=== PATIENT | male | born 1960 | race Caucasian/White ===

== ENCOUNTER 2017-10-16 17:54 | Outpatient (CLI) | END 2017-10-16 17:55 | disposition home or self-care (01) | LOC: NONPT 17:54 | DX: M86.9 Osteomyelitis, unspecified (principal) | CPT/HCPCS: 80202 ==

== ENCOUNTER 2017-11-01 13:58 | Outpatient (CLI) | END 2017-11-01 13:59 | disposition home or self-care (01) | LOC: NONPT 13:58 | PROVIDERS: ATTEND Internal Medicine Infectious Disease | DX: E11.9 Type 2 diabetes mellitus without complications (principal); M86.9 Osteomyelitis, unspecified | CPT/HCPCS: 80053; 83036; 85025; 85651 ==

== ENCOUNTER 2018-01-03 15:16 | Outpatient (CLI) | END 2018-01-03 15:17 | disposition home or self-care (01) | LOC: NONPT 15:16 | PROVIDERS: ATTEND Internal Medicine Gastroenterology | DX: M86.9 Osteomyelitis, unspecified (principal); E11.9 Type 2 diabetes mellitus without complications; I10 Essential (primary) hypertension | CPT/HCPCS: 85025; 85651 ==